=== PATIENT | female | born 2000 | race Caucasian/White ===

== ENCOUNTER 2021-10-09 05:48 | Inpatient (IN) ==
[2021-10-09] MEDS ORDERED: Ondansetron 4 MG/2 ML VIAL IVP PRN ×2 (06:34→09:31)
[2021-10-09] MEDS ORDERED: Famotidine 20 MG/2 ML VIAL IVP PRN (06:34)
[2021-10-09] MEDS ORDERED: *HR* Nalbuphine 10 MG/ML AMPUL IV PRN (06:34)
[2021-10-09] MEDS ORDERED: miSOPROStoL 25 MCG TABLET PO PRN (06:34)
[2021-10-09] MEDS ORDERED: Naloxone 0.4 MG/ML INJ IVP PRN ×2 (06:34→09:31)
[2021-10-09] MEDS ORDERED: *HR* FentaNYL (PF) 100 MCG/2 ML VIAL IVP PRN (06:34)
[2021-10-09] MEDS ORDERED: Azithromycin 500 MG in 0.9 % Sodium Chloride 250 ML IVPB PRN (06:34)
[2021-10-09] MEDS ORDERED: Metoclopramide 10 MG/2 ML VIAL IVP PRN (06:34)
[2021-10-09 06:56] LABS: Basophils % 0.4 %; Eosinophils # 0.1 K/mcL (0.0-0.6); Eosinophils % 0.7 %; Hematocrit 39.7 % (35.3-44.9); Hemoglobin 12.5 g/dL (11.5-15.4); Lymphocytes # 2.6 K/mcL (0.6-4.6); Lymphocytes % 22.7 %; Mean Corpuscular HGB Conc 31.5 g/dL (31.6-35.5); Mean Corpuscular Hemoglobin 27.5 pg (28.0-33.3); Mean Corpuscular Volume 87.3 fL (83.0-100.0); Mean Platelet Volume 9.9 fL (9.4-12.4); Monocytes # 0.6 K/mcL (0.0-1.3); Monocytes % 5.3 %; Neutrophils # 7.9 K/mcL (1.6-8.9); Platelet Count 245 K/mcL (140-400); Red Blood Count 4.55 M/mcL (3.82-4.97); Red Cell Distribution Width 15.5 % (11.5-14.5); Segmented Neutrophils % 68.9 %; White Blood Count 11.4 K/mcL (4.3-11.1)
[2021-10-09 07:31] LABS: Influenza A PCR Negative (Negative); Influenza B PCR Negative (Negative); Resp. Syncytial Virus PCR Negative (Negative); SARS-CoV-2 by PCR (In House) Negative (Negative)
[2021-10-09] MEDS ORDERED: EPHEDrine 50 MG/ML VIAL IVP PRN (09:31)
[2021-10-09] MEDS ORDERED: Ropivacaine/PF 0.2% 20 ML VIAL EP ONE (09:31)
[2021-10-09] MEDS ORDERED: *HR* FentaNYL (PF) 100 MCG/2 ML VIAL EP ONE (09:31)
[2021-10-09] MEDS ORDERED: Epidural Premix (fent/bupiv) 110 ML EP SCH (09:45)
[2021-10-09] MEDS ORDERED: Oxytocin 30 UNIT/503 ML BAG IVC SCH (11:45)
[2021-10-09] MEDS: Ringers Solution, Lactated 1,000 ML IVC SCH ×2 (11:58→17:10)
[2021-10-09 13:03] LABS: Amphetamine Screen,Urine Negative ng/mL (Cutoff=1000); Barbiturate Screen,Urine Negative ng/mL (Cutoff=200)
[2021-10-09 13:04] LABS: Benzodiazepines Screen,Urine Negative ng/mL (Cutoff=300); Cannabinoid Screen,Urine Negative ng/mL (Cutoff = 50); Cocaine Screen,Urine Negative ng/mL (Cutoff= 300); Opiate Screen,Urine Negative ng/mL (Cutoff=300); Phencyclidine Screen,Urine Negative ng/mL (Cutoff=25)
[2021-10-09] MEDS ORDERED: Ropivacaine/PF 0.2% 20 ML VIAL ONE (14:26)
[2021-10-09] MEDS ORDERED: Ibuprofen 600 MG TABLET PO ONE (21:47)
[2021-10-10] MEDS ORDERED: Ondansetron ODT 4 MG TAB.RAPDIS SL PRN (00:25)
[2021-10-10] MEDS ORDERED: Benzocaine/Menthol 56 GM AEROSOL SPRAY TP PRN (00:25)
[2021-10-10] MEDS ORDERED: Oxytocin 30 UNIT/503 ML BAG IVC SCH (00:25)
[2021-10-10] MEDS: Ibuprofen 600 MG TABLET PO SCH ×4 (02:15→20:21)
[2021-10-10] MEDS: Acetaminophen 325 MG TABLET PO SCH ×4 (02:15→20:20)
[2021-10-10] MEDS ORDERED: Prenatal Vit/FA 1 EACH TABLET PO SCH (09:00)
[2021-10-10 15:58] VITALS: TEMP 98
[2021-10-10 20:49] VITALS: PULSE 97
[2021-10-10 20:50] VITALS: BP 118/74; O2SAT 98
== END 2021-10-10 22:55 | disposition home or self-care (01) | DRG 560 ==
LOC: 1NENULAB 05:48 → 1NENUOBS 10-10 00:24
PROVIDERS: ADMIT Advanced Practice Midwife; ATTEND Advanced Practice Midwife